=== PATIENT | female | born 1985 | race Asian ===

== ENCOUNTER 2021-08-13 01:15 | Emergency (ER) | payer OTHER ==
[~2021-08-13] VITALS: Ht 154.9 cm; Wt 62.1 kg
[2021-08-13 01:19] VITALS: BP 128/99
--- NOTE | 2021-08-13 01:24 | NUR ---
TO ROOM AMBULATORY
--- NOTE | 2021-08-13 01:25 | NUR ---
35 Y/O FEMALE WHO BROUGHT HERSELF TO ED WITH C/O OF RIB PAIN. PT. STATES THAT HER LEFT SIDE RIB UNDER HER BREAST HAS LOCALIZED PAIN AND "FEELS SHARP WHEN I BREATHE." PT. RATES PAIN AT 7/10 ON THE PAIN SCALE AT THIS TIME. PT. STATES THAT SHE HAS BEEN FEELING LIKE THIS FOR 2 WEEKS. DENIES N/V/D/FEVER; SKIN IS PINK/WARM/DRY; AAOX4 WITH EVEN AND STEADY GAIT; HR EVEN AND REGULAR; VSS; PATIENT POSITIONED FOR COMFORT; HOB ELEVATED; BEDRAILS UP X1; BED DOWN. ER MADE AWARE OF PT STATUS PMH: DENIES ALLERGIES: NKA
[2021-08-13] MEDS ORDERED: IBUPROFEN 800 MG TAB PO ONE (01:35)
--- NOTE | 2021-08-13 01:58 | NUR ---
EKG AT BEDSIDE
--- NOTE | 2021-08-13 02:13 | NUR ---
MOTHER AND FATHER AT BEDSIDE, PT. IS IN SUPINE POSITION WITH EYES CLOSED. AWAITING DISPOSITON
--- NOTE | 2021-08-13 02:13 | NUR ---
Felisa oviedo in EDM - 08/13/21 at 0213 by ABELINO MOTHER AND FATHER AT BEDSIDE, PT. IS IN SUPINE POSITION WITH EYES CLOSED. AWAITING DISPOSITON
[2021-08-13] MEDS ORDERED: IBUP-2218 PO (03:09)
[2021-08-13 03:23] VITALS: BP 128/99
== END 2021-08-13 03:23 | disposition home or self-care (01) ==
LOC: MED 01:15
DX: R07.89 Other chest pain (principal); R06.02 Shortness of breath; Z79.899 Other long term (current) drug therapy
CPT/HCPCS: 71101; 81025; 93005; 99283